=== PATIENT | female | born 1975 | race Two or more races ===

== ENCOUNTER 2017-09-01 22:49 | Emergency (ER) | payer MEDICARE ==
[~2017-09-01] VITALS: Ht 167.6 cm; Wt 59.0 kg
[2017-09-01 23:06] VITALS: BP_SYST 116
[2017-09-02] MEDS ORDERED: ONDANSETRON 4 MG ODT TAB PO ONE (01:15)
[2017-09-02] MEDS ORDERED: IBUPROFEN 600 MG TABLET PO ONE (01:15)
[2017-09-02 03:18] VITALS: BP_SYST 110
== END 2017-09-02 03:14 | disposition home or self-care (01) ==
LOC: SED 22:49
DX: S05.11XA Contusion of eyeball and orbital tissues, right eye, initial encounter (principal); W22.01XA Walked into wall, initial encounter; Y93.89 Activity, other specified; Y92.89 Other specified places as the place of occurrence of the external cause; Y99.8 Other external cause status
CPT/HCPCS: 70450; 70486; 81025; 99284; Q0162